=== PATIENT | male | born 1995 | race Caucasian/White ===

== ENCOUNTER 2016-07-19 14:40 | Emergency (ER) | payer SELFPAY ==
[~2016-07-19] VITALS: Wt 79.4 kg
[2016-07-19] MEDS ORDERED: CARBAMAZEPINE200 MG PO (14:52)
[2016-07-19] MEDS ORDERED: TEGRETOL200 MG PO (14:55)
== END 2016-07-19 14:56 | disposition home or self-care (01) ==
LOC: ED 14:40
DX: Z76.0 Encounter for issue of repeat prescription (principal); R03.0 Elevated blood-pressure reading, without diagnosis of hypertension; F17.200 Nicotine dependence, unspecified, uncomplicated

== ENCOUNTER 2016-10-15 14:09 | Emergency (ER) | payer SELFPAY ==
[~2016-10-15] VITALS: Ht 187.9 cm; Wt 83.9 kg
[~2016-10-15 14:09] MED LIST: CARBAMAZEPINE200 MG PO; TEGRETOL200 MG PO
[2016-10-15] MEDS ORDERED: IMODIUM A-D2 M2 PO (15:48)
[2016-10-15] MEDS ORDERED: PHENERGAN25 M3 PO (15:48)
== END 2016-10-15 16:23 | disposition home or self-care (01) ==
LOC: ED 14:09
DX: K52.9 Noninfective gastroenteritis and colitis, unspecified (principal); F17.200 Nicotine dependence, unspecified, uncomplicated; Z79.899 Other long term (current) drug therapy

== ENCOUNTER 2016-11-07 10:45 | Emergency (ER) | payer SELFPAY ==
[~2016-11-07] VITALS: Wt 83.9 kg
[~2016-11-07 10:45] MED LIST changes: +IMODIUM A-D2 M2 PO; +PHENERGAN25 M3 PO
[2016-11-07] MEDS ORDERED: PREDNISONE10 MG PO (11:00)
[2016-11-07] MEDS ORDERED: CLARITIN10 MG PO (11:00)
[2016-11-07] MEDS ORDERED: FLONASE ALLERG9.9 ML NAS (11:00)
== END 2016-11-07 11:58 | disposition home or self-care (01) ==
LOC: ED 10:45
DX: J02.9 Acute pharyngitis, unspecified (principal); H92.03 Otalgia, bilateral; R03.0 Elevated blood-pressure reading, without diagnosis of hypertension; F17.200 Nicotine dependence, unspecified, uncomplicated

== ENCOUNTER 2017-01-14 12:17 | Emergency (ER) | payer SELFPAY ==
[~2017-01-14 12:17] MED LIST changes: +CLARITIN10 MG PO; +FLONASE ALLERG9.9 ML NAS; +PREDNISONE10 MG PO
[2017-01-14 13:10] LABS: BILIRUBIN NEGATIVE (NEGATIVE); BLOOD NEGATIVE (NEGATIVE); CLARITY SL CLOUDY (CLEAR); COLOR YELLOW (YELLOW); GLUCOSE NEGATIVE (NEGATIVE); KETONE TRACE (NEGATIVE); LEUKO ESTERASE NEGATIVE (NEGATIVE); NITRITE NEGATIVE (NEGATIVE)
[2017-01-14 13:12] LABS: CALCIUM OXALATE CRYSTALS TRACE
[2017-01-14 13:13] LABS: BACTERIA TRACE; MUCOUS 2+; RBC 0-2 rbc/hpf (0-2); WBC 0-2 wbc/hpf (0-5)
[2017-01-14] MEDS ORDERED: FLAGYL500 MG PO (13:35)
== END 2017-01-14 14:46 | disposition home or self-care (01) ==
LOC: ED 12:17
PROVIDERS: Nurse Practitioner Family
DX: Z11.3 Encounter for screening for infections with a predominantly sexual mode of transmission (principal); F17.200 Nicotine dependence, unspecified, uncomplicated; Z79.899 Other long term (current) drug therapy

== ENCOUNTER 2017-02-06 10:53 | Emergency (ER) | payer SELFPAY ==
[~2017-02-06] VITALS: Wt 88.5 kg
[~2017-02-06 10:53] MED LIST changes: +FLAGYL500 MG PO
[2017-02-06] MEDS ORDERED: ZOFRAN4 MG PO (11:06)
== END 2017-02-06 11:13 | disposition home or self-care (01) ==
LOC: ED 10:53
DX: K29.00 Acute gastritis without bleeding (principal); R03.0 Elevated blood-pressure reading, without diagnosis of hypertension; F17.200 Nicotine dependence, unspecified, uncomplicated

== ENCOUNTER 2017-03-15 21:06 | Emergency (ER) | payer SELFPAY ==
[~2017-03-15] VITALS: Ht 190.5 cm; Wt 88.5 kg
[~2017-03-15 21:06] MED LIST changes: +ZOFRAN4 MG PO
== END 2017-03-15 22:01 | disposition home or self-care (01) ==
LOC: ED 21:06
DX: R11.0 Nausea (principal); T42.1X5A Adverse effect of iminostilbenes, initial encounter; F17.200 Nicotine dependence, unspecified, uncomplicated; Y92.89 Other specified places as the place of occurrence of the external cause

== ENCOUNTER 2017-03-21 23:14 | Emergency (ER) | payer SELFPAY ==
[~2017-03-21] VITALS: Ht 167.6 cm; Wt 86.2 kg
[2017-03-22] MEDS ORDERED: OMNICEF300 MG PO (00:09)
== END 2017-03-22 00:21 | disposition home or self-care (01) ==
LOC: ED 23:14
DX: H65.93 Unspecified nonsuppurative otitis media, bilateral (principal); F17.200 Nicotine dependence, unspecified, uncomplicated

== ENCOUNTER 2017-06-24 21:33 | Emergency (ER) | payer SELFPAY ==
[~2017-06-24] VITALS: Ht 190.5 cm; Wt 83.9 kg
[~2017-06-24 21:33] MED LIST changes: +OMNICEF300 MG PO
[2017-06-24] MEDS ORDERED: CLARITIN10 MG PO (23:28)
== END 2017-06-24 23:37 | disposition home or self-care (01) ==
LOC: ED 21:33
DX: J06.9 Acute upper respiratory infection, unspecified (principal)

== ENCOUNTER 2017-06-28 13:24 | Emergency (ER) | payer SELFPAY ==
[~2017-06-28] VITALS: Ht 190.5 cm; Wt 83.9 kg
[2017-06-28] MEDS ORDERED: ZOFRAN ODT4 MG SL (13:39)
[2017-06-28] MEDS ORDERED: LOMOTIL 2.5-0.1 EACH PO (13:40)
== END 2017-06-28 14:13 | disposition home or self-care (01) ==
LOC: ED 13:24
DX: K52.9 Noninfective gastroenteritis and colitis, unspecified (principal); F17.200 Nicotine dependence, unspecified, uncomplicated

== ENCOUNTER → 2018-08-13 | Outpatient (CLI) | payer OTHER ==
[~2018-08-13] MED LIST changes: +LOMOTIL 2.5-0.1 EACH PO; +ZOFRAN ODT4 MG SL
[2018-08-13 10:50] LABS: HEMATOCRIT 46.7 % (42.0-52.0); HEMOGLOBIN 16.6 g/dl (14.0-18.0); MEAN CELL VOLUME 86.5 fl (80.0-94.0); MEAN CORPUSCULAR HGB 30.7 pg (27.0-31.0); MEAN CORPUSCULAR HGB CONC 35.5 g/dl (33.0-37.0); MEAN PLATELET VOLUME 10.4 fl (9.6-12.3); RED BLOOD COUNT 5.4 10*6/uL (4.50-5.90); RED CELL DISTRI WIDTH 11.8 % (0-14.5); WHITE BLOOD COUNT 11.9 10*3/uL (4.8-10.8)
[2018-08-13 11:02] LABS: URINE AMPHETAMINES < 1000 (1000ng/ml); URINE BARBITURATES < 200 (200ng/ml); URINE BENZODIAZEPINES < 200 (200ng/ml); URINE CANNABINOIDS (THC) < 50 (50ng/ml); URINE COCAINE < 300 (300ng/ml); URINE METHADONE < 300 (300ng/ml); URINE OPIATES < 300 (300ng/ml); URINE PHENCYCLIDINE < 25 (25ng/ml)
[2018-08-13 11:13] LABS: ALBUMIN 4.7 gm/dl (3.1-4.5); ALKALINE PHOSPHATASE 79 U/L (45-117); BUN 9 mg/dl (7-24); CHLORIDE 105 mmol/L (98-107); CHOLESTEROL 155 mg/dL (<200); CREATININE 1.16 mg/dL (0.70-1.30); HDL CHOLESTEROL 37 mg/dl (40-60); LDL CHOLESTEROL 103 mg/dL (9-159); POTASSIUM 3.4 mmol/L (3.5-5.1); SGOT/AST 18 IU/L (3-35); SGPT/ALT 22 U/L (12-78); SODIUM 139 mmol/L (136-145); TOTAL PROTEIN 8.4 gm/dL (6.4-8.2); TRIGLYCERIDES 76 mg/dl (<150); VLDL CHOLESTEROL 15 mg/dL (6-40)
== END | disposition home or self-care (01) ==
LOC: LAB 10:12
PROVIDERS: Family Medicine
DX: Z13.220 Encounter for screening for lipoid disorders (principal); R53.83 Other fatigue

== ENCOUNTER 2018-12-22 09:50 | Emergency (ER) | payer MEDICAID ==
[~2018-12-22] VITALS: Ht 180.3 cm; Wt 88.5 kg
[2018-12-22] MEDS ORDERED: AUGMENTIN 875875 MG PO (10:28)
[2018-12-22] MEDS ORDERED: IBUPROFEN600 MG PO (10:32)
== END 2018-12-22 11:29 | disposition home or self-care (01) ==
LOC: ED 09:50
DX: L05.01 Pilonidal cyst with abscess (principal); Z79.899 Other long term (current) drug therapy

== ENCOUNTER 2019-01-14 19:26 | Emergency (ER) | payer SELFPAY ==
[~2019-01-14] VITALS: Ht 182.8 cm; Wt 88.5 kg
[~2019-01-14 19:26] MED LIST changes: +AUGMENTIN 875875 MG PO; +IBUPROFEN600 MG PO
[2019-01-14] MEDS ORDERED: DOXYCYCLINE100 M3 PO (20:38)
== END 2019-01-14 20:48 | disposition home or self-care (01) ==
LOC: ED 19:26
DX: L02.31 Cutaneous abscess of buttock (principal); J45.990 Exercise induced bronchospasm; F17.200 Nicotine dependence, unspecified, uncomplicated; Z79.2 Long term (current) use of antibiotics; Z79.899 Other long term (current) drug therapy